=== PATIENT | male | born 1985 | race Hispanic/Latino ===

== ENCOUNTER 2022-03-01 14:26 | Emergency (ER) | payer SELFPAY ==
--- OUTSIDE RECORDS SUMMARY | 2022-03-01 14:31 | XMS REPORT | Continuity of Care Document ---
:1985 Author Organization [facility] t Address [address] [place] [address] Care Team Providers Name Role Phone MAEVE MEDRANO Attending Clinician Unavailable MAEVE MEDRANO Admitting Clinician Unavailable Payers Payer Name Policy Type Policy Number Effective Date Expiration Date S ource Problems This patient has no known problems. Allergies, Adverse Reactions, Alerts Allergy Allergy Status Severity Reaction(s) Onset Inactive Treating Comm ents Source Name Type Date Date Clinician No Known DA Active U 2019-0 [facility] Allergie 2-08 Clear s 00:00: Jain 00 [facility] No Known DA Active U 2017-0 [facility] Allergie 7-09 Clear s 00:00: Jain 00 [facility] Medications This patient has no known medications. Procedures This patient has no known procedures. Encounters Start End Encounter Admission Attending Care Care Encounter Source Date/Time Date/Time Type Type Clinicians Facility Department ID 2021-06-27 2021-06-28 [place] [facility] [place] [facility] [place] 18:50:00 [facility] Results Test Description Test Time Test Comments Results Result Comments Source D-DIMER 2018-10-17 21:51:00 Test Item Value Reference Range Interpretation Comme nts D-DIMER (test code = 439 ng/mlFEU <=500 N THROMBO SIS AND/OR PULMONARY EMBOLISM DDIMER) AND THE CLINICA L CUT- OFF VALUE FOR EXCLUSION (500 ng/mL FEU) OF THESE CONDITIONSIS VA LIDATED BY THE BUILDING COORDINATOR OF THE METHOD. A NEGATIVE D-DIMER RESULT WHEN COMBINED WITH A CLINICALASSESSM ENT OF LOW PRETEST PROBABILITY HAS BEEN SHOWN TO HAVEA HIGH NEGATIVE P REDICTIVE VALUE OF DVT OR PE. D-DIMER VALUES >500 ng/mL FEU ARE NOT DIAGNOS TIC FOR DVT, PEor DIC WITHOUT OTHER C ONFIRMATORY TESTS AND APPROPRIATECLIN ICAL EUALUATIONS. - XR CHEST 1 [id number] 21:45:00 FAX: Ciarra Ford NP [place]: St: REG Name: YARED ALMAGUER [facility] : 1985 Age/S: 33/M [address] [place] [address] Unit#: [id number] Loc: [place] [address] Phys: Ciarra Ford NP Acct: [id number] Dis Date: Status: REG ER PHONE #: [phone] Exam Date: 10/17/20182131 FAX #: [phone] Reason: CP EXAMS: CPT CODE: [id number] XR CHEST 1 V 93721 Clinical Indication: Chest pain Comparison: None FINDINGS: The frontal chest radiograph shows normal lung volumes without i nterstitial or airspace opacities, pleural effusions or pneumothorax. The heart is normal in size. The trachea is midline. There are no clinically significant osseous abnormalities noted. IMPRESSION: No chest radiographic evidence of acute cardiopulmonary disease. SL: [id number] at 2315 Reported and signed by: Yehuda Jackson M.D. 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 The universal defin ition of LA, according to is taskforce, is d efined as a typical rise an d gradual fall ofcardiac biomarkers (preferably tro ponin) with at least oneval ue above the 99th percentile of the upper reference limit (URL) together with e vidence of myocardial isch emia with at least one of th e following:* isc hemic symptoms,* path ological Q waves on electr ocardiogram (ECG),* ischemi c ECG changes,* or im aging evidence of new loss of viable myocardi um or new regional wall m otion abnormality. An elevated troponin value alone is not sufficient todi agnose a myocardial infa rction. Rather, the pat ient sclinical prese ntation (history, physi susan exam) and ECGshould b e used in conjunction wit h troponin in thediagnosti c evaluation of suspected my ocardial infarction. Ase rial sampling protoc ol is recommended to facilitate the identificat ion of temporal change s in troponin levels characteristic of LA. CBC W/O [id number] 21:41:00 Test Item Value Reference Range Interpretation Comments WHITE BLOOD CELL (test code = 7.96 x10 3/uL 4.5-11.0 N WBC) RED BLOOD CELL (test code = 5.30 x10 6/uL 4.00-5.60 N RBC) HEMOGLOBIN (test code = HGB) 15.6 g/dL 12.5-16.9 N HEMATOCRIT (test code = HCT) 47.7 % 37.5-50.7 N MEAN CELL VOLUME (test code = 90.0 fL 81.0-99.0 N MCV) MEAN CELL HGB (test code = MCH) 29.4 pg 27.0-33.0 N MEAN CELL HGB CONCETRATION 32.7 g/dL 33.0-37.0 L (test code = MCHC) RED CELL DISTRIBUTION WIDTH CV 12.5 % 11.5-14.5 N (test code = RDW) RED CELL DISTRIBUTION WIDTH SD 41.7 fL 37.0-54.0 N (test code = RDW-SD) PLATELET COUNT (test code = 314 x10 3/uL 150-400 N PLT) MEAN PLATELET VOLUME (test code 9.8 fL 7.0-9.0 H = MPV) CHEMISTRY 8 [id number] 21:33:00 Test Item Value Reference Range Interpretation Comments ISTAT-SODIUM (test code = NAP) MMOL/L 134-147 ISTAT-POTASSIUM (test code = KP) MMOL/L 3.4-5.0 ISTAT-CHLORIDE (test code = CLP) MMOL/L 100-108 ISTAT CARBON DIOXIDE (test code = mmol/L 21-33 N ISTAT-CO2) ISTAT CALCIUM IONIZED (test code = MG/DL 1.12-1.32 ISTAT-THANG) ISTAT-GLUCOSE (test code = GLUP) MG/DL 70-110 N ISTAT-BUN (test code = BUNP) MG/DL 7-18 N BEDSIDE CREATININE (test code = MG/DL 0.6-1.3 N CREATBED) GLOMERULAR FILTRATION RATE POC 93 ML/MIN (test code = GFRBED) CHEMISTRY 8 [id number] 21:33:00 Test Item Value Reference Range Interpretation Comments ISTAT-SODIUM (test 142 MMOL/L 134-147 N code = NAP) ISTAT-POTASSIUM (test 3.9 MMOL/L 3.4-5.0 N code = KP) ISTAT-CHLORIDE (test 101 MMOL/L 100-108 N Perform ed by code = CLP) certified opera tor at [facility] ISTAT CARBON DIOXIDE 28.0 mmol/L 21-33 N (test code = ISTAT-CO2) ISTAT CALCIUM IONIZED 1.14 MG/DL 1.12-1.32 N (test code = ISTAT-THANG) ISTAT-GLUCOSE (test 92 MG/DL 70-110 N code = GLUP) ISTAT-BUN (test code = 9 MG/DL 7-18 N BUNP) BEDSIDE CREATININE 1.0 MG/DL 0.6-1.3 N (test code = CREATBED) GLOMERULAR FILTRATION 93 ML/MIN RATE POC (test code = GFRBED)
[2022-03-01 14:55] LABS: Urine Blood 2+ (Negative); Urine Glucose Negative (Negative); Urine Protein Negative (Negative)
[2022-03-01 14:59] LABS: Absolute Lymphocytes (CBC) 1.7 K/uL (0.7-4.9); Hematocrit 44.2 % (39.6-49.0); Lymphocytes % 21.6 % (15.3-44.8); MPV 8.4 fL (7.6-11.3); RBC Red Blood Cell Count 4.83 M/uL (4.33-5.43)
[2022-03-01 15:14] LABS: Urine Bacteria <20 /HPF (NONE SEEN)
[2022-03-01 15:18] LABS: Bilirubin Total 0.3 mg/dL (0.2-1.0); Potassium 4.2 mmol/L (3.5-5.1); Protein, Total 7.4 g/dL (6.4-8.2)
--- NOTE | 2022-03-01 15:30 | RAD REPORT ---
[facility] DES[facility] - 03/01/2022 3:08 pm CLINICAL HISTORY: flank pain COMPARISON: No comparisons TECHNIQUE: CT of the abdomen and pelvis was performed. All CT scans are performed using dose optimization technique as appropriate and may include automated exposure control or mA/KV adjustment according to patient size. FINDINGS: Lower chest: No acute abnormality. Liver: No acute abnormality or suspicious lesions. Biliary: No biliary ductal dilatation. Stomach: Distended stomach. Banding at the gastric cardia. Duodenum: No significant focal abnormality. Pancreas: No significant abnormality. Spleen: No significant abnormality. Adrenal: No suspicious lesions. Kidney/ureter: No hydronephrosis. No renal calculi. Retroperitoneum: No retroperitoneal adenopathy. Vascular: No aneurysm. Bowel: Normal appendix. Peritoneum: No ascites or free air. Bladder: Grossly unremarkable. Reproductive: No adnexal masses. Bones: No acute fracture. Other: n/a IMPRESSION: No acute intra-abdominal or pelvic finding. No renal or ureteral calculi identified. Nor mal appendix.
--- NOTE | 2022-03-01 16:22 | EDPHYS ---
Physician Documentation [facility] Name: Oneil Newman Age: 36 yrs Sex: Male : 1985 Arrival Date: 03/01/2022 Time: 14:28 Bed 19 Private MD: ED Physician Heraclio Shah HPI: 03/01 14:42 This 36 yrs old Male presents to ER via Ambulatory with complaints of Flank cp Pain, Urinary Problem, Constipation. 14:42 The patient complains of pain in the right flank. cp 14:42 Onset: The symptoms/episode began/occurred today. cp 14:42 Associated signs and symptoms: Pertinent positives: dysuria, hematuria, Pertinent cp negatives: diarrhea, fever, nausea, pain radiating to the lower extremities, vomiting. Severity of pain: in the emergency department the pain is unchanged despite home interventions. Historical: - Allergies: 14:35 No Known Allergies; ss - Home Meds: 14:35 Albuterol Inhl [Active]; ss - PMHx: 14:35 Asthma; ss - PSHx: 14:35 Gastric bypass; ss - Immunization history:: Client reports having NOT received the Covid vaccine. - Social history:: Smoking status: Patient reports the use of cigarette tobacco products, smokes one-half pack cigarettes per day, Patient/guardian denies using street drugs, Pt states he recently quit using Marijuana . ROS: 14:45 Constitutional: Negative for body aches, chills, fever, poor PO intake. cp 14:45 Eyes: Negative for injury, pain, redness, and discharge. cp 14:45 ENT: Negative for ear pain, sore throat. 14:45 Cardiovascular: Negative for chest pain, palpitations. 14:45 Respiratory: Negative for cough, shortness of breath, wheezing. 14:45 Abdomen/GI: Negative for vomiting, diarrhea, constipation, black/tarry stool, rectal bleeding. 14:45 Back: Positive for flank pain, on the right. 14:45 : Positive for hematuria, burning with urination, Negative for penile discharge, testicular pain 14:45 Neuro: Negative for altered mental status, headache, weakness. 14:45 All other systems are negative. Exam: 14:50 Constitutional: The patient appears in no acute distress, alert, awake, non-toxic, well cp developed, well nourished. 14:50 Head/Face: Normocephalic, atraumatic. cp 14:50 Eyes: Periorbital structures: appear normal, Conjunctiva: normal, no exudate, no cp injection, Sclera: no appreciated abnormality, Lids and lashes: appear normal, bilaterally. 14:50 ENT: External ear(s): are unremarkable, Nose: is normal, Mouth: Lips: moist, Oral cp mucosa: moist, Posterior pharynx: Airway: no evidence of obstruction, patent. 14:50 Neck: ROM/movement: is normal, is supple, without pain, no range of motions limitations.cp 14:50 Chest/axilla: Inspection: normal, Palpation: is normal, no crepitus, no tenderness. 14:50 Cardiovascular: Rate: normal. 14:50 Respiratory: the patient does not display signs of respiratory distress, Respirations: normal, no use of accessory muscles, no retractions, labored breathing, is not present, Breath sounds: are clear throughout, no decreased breath sounds, no stridor, no wheezing. 14:50 Abdomen/GI: Inspection: abdomen appears normal, Bowel sounds: active, all quadrants, Palpation: soft, in all quadrants, mild abdominal tenderness, in the right flank, rebound tenderness, is not appreciated, involuntary guarding, is not appreciated. 14:50 Back: CVA tenderness, is absent. 14:50 Skin: cellulitis, is not appreciated, no rash present. Vital Signs: 14:33 BP 132 / 90; Pulse 80; Resp 16; Temp 98.9(TE); Pulse Ox 100% on R/A; Weight 81.65 kg; ss Height 5 ft. 8 in. (172.72 cm); 14:49 BP 125 / 84; Pulse 73; Resp 18; Pulse Ox 100% on R/A; Pain 8/10; ld1 15:43 BP 126 / 88; Pulse 71; Resp 18; Pulse Ox 100% on R/A; Pain 0/10; ld1 16:39 BP 128 / 84; Pulse 70; Resp 18; Pulse Ox 100% on R/A; ld1 14:33 Body Mass Index 27.37 (81.65 kg, 172.72 cm) ss MDM: 14:44 Patient medically screened. cp 16:20 Data reviewed: vital signs, nurses notes, lab test result(s), radiologic studies, CT cp scan. 16:20 Differential diagnosis: nephrolithiasis, pyelonephritis, UTI. Counseling: I had a cp detailed discussion with the patient and/or guardian regarding: the historical points, exam findings, and any diagnostic results supporting the discharge/admit diagnosis, lab results, radiology results, to return to the emergency department if symptoms worsen or persist or if there are any questions or concerns that arise at home. 03/01 14:39 Order name: CBC with Diff; Complete Time: 15:29 cp 03/01 15:29 Interpretation: Reviewed. cp 03/01 14:39 Order name: CMP; Complete Time: 15:29 cp 03/01 15:29 Interpretation: Normal except: AST 124. cp 03/01 14:39 Order name: Lipase; Complete Time: 15:29 cp 03/01 14:39 Order name: Urine Microscopic Only; Complete Time: 15:29 cp 03/01 15:29 Interpretation: Normal except: URBC 5-10. 03/01 14:52 Order name: CT Stone Protocol; Complete Time: 15:33 cp 03/01 14:56 Order name: Urine Dipstick-Ancillary; Complete Time: 15:29 EDMS 03/01 15:29 Interpretation: Normal except: UBLD 2+. cp 03/01 14:39 Order name: IV Saline Lock; Complete Time: 14:49 cp 03/01 14:39 Order name: Labs collected and sent; Complete Time: 14:49 cp 03/01 14:39 Order name: Urine Dipstick-Ancillary (obtain specimen); Complete Time: 14:49 cp Administered Medications: No medications were administered Disposition Summary: 03/01/22 16:21 Discharge Ordered Location: Home cp Problem: new cp Symptoms: have improved cp Condition: Stable cp Diagnosis - Hematuria, unspecified cp - Constipation cp Followup: cp - With: Anthony Schwartz MD - When: 1 week - Reason: hematuria continues Discharge Instructions: - Discharge Summary Sheet cp - Constipation, Adult cp - Hematuria, Adult cp Forms: - Medication Reconciliation Form cp - Thank You Letter cp - Antibiotic Education cp - Prescription Opioid Use cp Prescriptions: - cefdinir 300 mg Oral capsule - take 1 capsule by ORAL route every 12 hours for 7 days; 14 capsule; Refills: 0, cp Product Selection Permitted Addendum: 03/05/2022 19:12 Co-signature as Attending Physician, Heraclio Shah MD I agree with the assessment and k dr plan of care. Signatures: Dispatcher [employer] EDHeraclio Ochoa MD MD [facility] Jazlyn John RN RN ss Clive Garcia, LAM PA cp Corrections: (The following items were deleted from the chart) 03/01 16:16 14:45 : Positive for hematuria, Negative for testicular pain cp cp
--- NOTE | 2022-03-01 16:22 | ER ---
Nurse's Notes [facility] Name: Oneil Newman Age: 36 yrs Sex: Male : 1985 Arrival Date: 03/01/2022 Time: 14:28 Bed 19 Private MD: Diagnosis: Hematuria, unspecified;Constipation Presentation: 03/01 14:33 Chief complaint: Patient states: blood in urine and RLQ pain that began 4 days ago. ss Last BM was 8 days ago. Coronavirus screen: Client denies travel out of the [place] in the last 14 days. Ebola Screen: Patient denies exposure to infectious person. Patient denies travel to an Ebola-affected area in the 21 days before illness onset. Initial Sepsis Screen: Does the patient meet any 2 criteria? No. Patient's initial sepsis screen is negative. Does the patient have a suspected source of infection? No. Patient's initial sepsis screen is negative. Risk Assessment: Do you want to hurt yourself or someone else? Patient reports no desire to harm self or others. Onset of symptoms was February 25, 2022. 14:33 Method Of Arrival: Ambulatory ss 14:33 Acuity: DIVYA 3 ss Historical: - Allergies: 14:35 No Known Allergies; ss - Home Meds: 14:35 Albuterol Inhl [Active]; ss - PMHx: 14:35 Asthma; ss - PSHx: 14:35 Gastric bypass; ss - Immunization history:: Client reports having NOT received the Covid vaccine. - Social history:: Smoking status: Patient reports the use of cigarette tobacco products, smokes one-half pack cigarettes per day, Patient/guardian denies using street drugs, Pt states he recently quit using Marijuana . Screenin:49 Abuse screen: Denies threats or abuse. Denies injuries from another. Nutritional ld1 screening: No deficits noted. Tuberculosis screening: No symptoms or risk factors identified. Fall Risk None identified. Assessment: 14:49 General: Appears in no apparent distress. comfortable, Behavior is calm, cooperative, ld1 appropriate for age. Pain: Complains of pain in right low back Pain does not radiate. Pain currently is 8 out of 10 on a pain scale. Quality of pain is described as throbbing. Neuro: Level of Consciousness is awake, alert, obeys commands, Oriented to person, place, time, situation. Cardiovascular: Capillary refill < 3 seconds Patient's skin is warm and dry. Rhythm is regular. Respiratory: Airway is patent Respiratory effort is even, unlabored, Respiratory pattern is regular, symmetrical. GI: Abdomen is flat, non-distended, Bowel sounds present X 4 quads. Abd is soft Abd is non tender. : Urine is blood tinged, Reports pain in right flank(s). 15:43 Reassessment: Patient appears in no apparent distress at this time. Patient and/or ld1 family updated on plan of care and expected duration. Pain level reassessed. Patient is alert, oriented x 3, equal unlabored respirations, skin warm/dry/pink. 16:39 Reassessment: Patient appears in no apparent distress at this time. No changes from ld1 previously documented assessment. Patient and/or family updated on plan of care and expected duration. Pain level reassessed. Patient is alert, oriented x 3, equal unlabored respirations, skin warm/dry/pink. Vital Signs: 14:33 BP 132 / 90; Pulse 80; Resp 16; Temp 98.9(TE); Pulse Ox 100% on R/A; Weight 81.65 kg; ss Height 5 ft. 8 in. (172.72 cm); 14:49 BP 125 / 84; Pulse 73; Resp 18; Pulse Ox 100% on R/A; Pain 8/10; ld1 15:43 BP 126 / 88; Pulse 71; Resp 18; Pulse Ox 100% on R/A; Pain 0/10; ld1 16:39 BP 128 / 84; Pulse 70; Resp 18; Pulse Ox 100% on R/A; ld1 14:33 Body Mass Index 27.37 (81.65 kg, 172.72 cm) ED Course: 14:28 Patient arrived in ED. rg4 14:34 Triage completed. ss 14:35 Arm band placed on right wrist. ss 14:38 Clive Garcia PA is PHCP. cp 14:38 Heraclio Shah MD is Attending Physician. cp 14:41 Karli Slaughter, COURT is Primary Nurse. ld1 14:49 Patient has correct armband on for positive identification. Placed in gown. Bed in low ld1 position. Call light in reach. Side rails up X2. panel monitor on. Pulse ox on. NIBP on. Door closed. Noise minimized. Warm blanket given. 14:49 Inserted saline lock: 20 gauge in left antecubital area, using aseptic technique. Blood ld1 collected. 14:49 No provider procedures requiring assistance completed. ld1 14:52 Urine Microscopic Only Sent. ld1 15:10 CT Stone Protocol In Process Unspecified. EDMS 16:20 Anthony Schwartz MD is Referral Physician. cp 16:40 IV discontinued, intact, bleeding controlled, No redness/swelling at site. ld1 Administered Medications: No medications were administered Medication: 14:49 VIS not applicable for this client. ld1 Outcome: 16:21 Discharge ordered by MD. cp 16:40 Discharged to home ambulatory. ld1 16:40 Condition: stable 16:40 Discharge instructions given to patient, Instructed on discharge instructions, follow up and referral plans. medication usage, Demonstrated understanding of instructions, follow-up care, medications, Prescriptions given X 1. 16:40 Patient left the ED. ld1 Signatures: Dispatcher [employer] EDCO Jazlyn John, RN RN Clive Ramirez, LAM PA Siomara Gilbert rg4 Karli Slaughter, COURT RN ld1
[2022-03-01 16:50] VITALS: TEMP 98.9; O2SAT 100
[2022-03-01 16:55] VITALS: BP 128/84
== END 2022-03-01 16:40 | disposition home or self-care (01) ==
LOC: ER 14:26
DX: R31.9 Hematuria, unspecified (principal); K59.00 Constipation, unspecified; F17.210 Nicotine dependence, cigarettes, uncomplicated; Z98.84 Bariatric surgery status
CPT/HCPCS: 36415; 74176; 76377; 80053; 81003; 81015; 83690; 85025; 99284